=== PATIENT | female | born 1995 | race African-American/Black ===

== ENCOUNTER 2020-03-20 18:21 | Emergency (ER) | payer OTHER ==
[2020-03-20 19:22] LABS: Hemoglobin 13.8 g/dL (12.0-16.0); Mean Corpuscular Hemoglobin 30.7 pg (27.0-31.0); Mean Corpuscular Volume 92.9 fL (78.0-98.0); Mean Platelet Volume 7.2 fL (7.4-10.4); Platelet Count 296 thou/uL (130-400); RBC Distribution Width 11.9 % (11.5-14.5)
[2020-03-20 19:40] LABS: ALT (SGPT) 7 U/L (8-55); AST (SGOT) 16 U/L (5-34); Alkaline Phosphatase 84 U/L (40-110); Anion Gap 10 mmol/L (10-20); BUN (Urea Nitrogen) 10 mg/dL (7.0-18.7); Band 11 % (5-11); Bilirubin, Total 0.3 mg/dL (0.2-1.2); Calc. Creatinine Clearance 0 mL/min (70-130); Calcium 9.3 mg/dL (7.8-10.44); Carbon Dioxide 28 mmol/L (22-29); Chloride 106 mmol/L (98-107); Eosinophils 3 % (0-10); Estimated GFR-MDRD 84; Globulin 2.9 g/dL (2.4-3.5); Glucose 98 mg/dL (70-105); Lymphocytes 42 % (21-51); MDiff Complete? YES; Monocytes 10 % (0-10); Neutrophil 28 % (42-75); Potassium 3.8 mmol/L (3.5-5.1); Protein, Total 6.9 g/dL (6.0-8.3); Reactive Lymphocytes 6 % (0-10); Sodium 140 mmol/L (136-145)
--- NOTE | 2020-03-20 19:55 | ULT ---
GALLBLADDER ULTRASOUND: History: Jaundice FINDINGS: Gallbladder shows at least one large gallstone with posterior shadowing. The gallbladder is mildly co ntracted and the gallbladder wall is thickened. Common duct is normal caliber measured at 4 mm. Visualized pancreas is unremarkable. Visualized liver is unremarkable. The right kidney is unremarkable. The technologist describes a positive Melissa's sign. IMPRESSION: Cholelithiasis with mildly thickened gallbladder wall. Positive Melissa's sign. POS: AGW
[2020-03-20 20:01] LABS: HBCM Index 0.05 S/CO (0-0.79); Hep A IgM AB Non-Reactive (NonReactive); Hep A IgM S/CO 0.17 S/CO (0-0.79); Hep B Surf Ag Non-Reactive S/CO (NonReactive); Hep C IgG Ab Non-Reactive (NonReactive); Hep C Index 0.09 S/CO (0-0.79); Hepatitis B Core IgM Abs Non-Reactive (NonReactive)
== END 2020-03-20 20:04 | disposition home or self-care (01) ==
LOC: ERS 18:21
DX: K80.20 Calculus of gallbladder without cholecystitis without obstruction (principal); R23.8 Other skin changes
CPT/HCPCS: 36415; 76705; 80053; 80074; 85025

== ENCOUNTER 2020-04-19 08:50 | Outpatient (CLI) | payer OTHER ==
[2020-04-19 11:06] LABS: BHCG - Serum Negative (NEGATIVE); Pregs Control Background? CLEAR/WHITE (CLR/WHITE); Pregs Control Bar Appear? YES (CONTROL BAR)
[2020-04-19 12:08] LABS: Albumin 4.3 g/dL (3.5-5.0)
[2020-04-19 12:09] LABS: Chloride 106 mmol/L (98-107); Potassium 4.1 mmol/L (3.5-5.1); Sodium 140 mmol/L (136-145)
[2020-04-19 12:10] LABS: Calcium 9.7 mg/dL (7.8-10.44); Glucose 102 mg/dL (70-105)
[2020-04-19 12:11] LABS: Globulin 2.6 g/dL (2.4-3.5); Protein, Total 6.9 g/dL (6.0-8.3)
[2020-04-19 12:12] LABS: Anion Gap 15 mmol/L (10-20); Bilirubin, Total 0.6 mg/dL (0.2-1.2); Carbon Dioxide 23 mmol/L (22-29)
[2020-04-19 12:13] LABS: Alkaline Phosphatase 78 U/L (40-110)
[2020-04-19 12:14] LABS: Calc. Creatinine Clearance 0 mL/min (70-130); Estimated GFR-MDRD Greater than 90
[2020-04-19 12:15] LABS: AST (SGOT) 14 U/L (5-34); BUN (Urea Nitrogen) 9 mg/dL (7.0-18.7)
[2020-04-19 12:16] LABS: ALT (SGPT) Less than 7 U/L (8-55)
[2020-04-19 12:22] LABS: Band 1 % (5-11); Eosinophils 2 % (0-10); Hemoglobin 14.5 g/dL (12.0-16.0); Lymphocytes 56 % (21-51); MDiff Complete? YES; Mean Corpuscular HGB CONC 32.8 g/dL (32.0-36.0); Mean Corpuscular Hemoglobin 30.6 pg (27.0-31.0); Mean Corpuscular Volume 93.2 fL (78.0-98.0); Mean Platelet Volume 7.2 fL (7.4-10.4); Monocytes 7 % (0-10); Neutrophil 29 % (42-75); Platelet Count 282 thou/uL (130-400); Platelet Morphology Comment Appears Adequate; Polychromasia SLIGHT = 2-3 cells (100X) (0-2/hpf); RBC Distribution Width 12.2 % (11.5-14.5); Reactive Lymphocytes 5 % (0-10); Red Blood Cell (RBC) Count 4.74 mill/uL (4.20-5.40); White Blood Cell (WBC) Count 4.5 thou/uL (4.8-10.8)
[2020-04-20 11:34] LABS: SARS-CoV-2 MS2 Positive; SARS-CoV-2 N Gene Negative; SARS-CoV-2 S Gene Negative; SARS-CoV-2 by NAA Not Detected (NotDetected); SARS-CoV-2 orf1ab Negative
== END 2020-04-19 08:51 | disposition home or self-care (01) ==
LOC: LABBT 08:50
PROVIDERS: ATTEND Specialist
DX: Z01.812 Encounter for preprocedural laboratory examination (principal); Z11.59 Encounter for screening for other viral diseases; K80.10 Calculus of gallbladder with chronic cholecystitis without obstruction
CPT/HCPCS: 80053; 84703; 85025; 87635; U0003

== ENCOUNTER 2020-04-22 06:12 | Day surgery (SDC) | payer OTHER ==
[2020-04-15 11:34] VITALS: BMI 30.9
[2020-04-22] MEDS ORDERED: Fentanyl 100 MCG/2 ML VIAL ONE ×3 (06:24→08:41)
[2020-04-22] MEDS ORDERED: SUGAMMADEX SODIUM 200 MG/2 ML VIAL ONE (06:24)
[2020-04-22] MEDS ORDERED: Bupivacaine PF 0.5% 30 ML VIAL ONE (06:37)
[2020-04-22] MEDS ORDERED: EPINEPHrine 1 MG/ML AMP ONE (06:37)
[2020-04-22] MEDS ORDERED: Acetaminophen 500 MG TAB ONE (06:44)
[2020-04-22] MEDS ORDERED: Scopolamine 1.5 mg/72 hour Patch ONE (06:44)
[2020-04-22] MEDS ORDERED: Ketorolac Tromethamine 30 MG/ML VIAL ONE (06:45)
[2020-04-22] MEDS ORDERED: Ondansetron PF 4 MG/2 ML Vial ONE (08:55)
[2020-04-22] MEDS ORDERED: Lidocaine 1% PF 5 ML VIAL ONE (08:55)
[2020-04-22] MEDS ORDERED: PROPOFOL 200 MG/20 ML VIAL ONE (08:55)
[2020-04-22] MEDS ORDERED: Dexamethasone 20 MG/5 ML VIAL ONE (08:55)
[2020-04-22] MEDS ORDERED: Rocuronium Bromide 10 MG/ML (10ML VIAL) ONE (08:55)
[2020-04-22] MEDS ORDERED: HYDROcodone/Acetaminophen 5/325 mg Tablet ONE (09:26)
--- NOTE | 2020-04-22 09:45 | OP ---
DATE OF PROCEDURE: 04/22/2020 PREOPERATIVE DIAGNOSES: 1. Chronic cholecystitis. 2. Cholelithiasis. 3. Preexisting umbilical hernia. POSTOPERATIVE DIAGNOSES: 1. Chronic cholecystitis. 2. Cholelithiasis. 3. Preexisting umbilical hernia. PROCEDURE PERFORMED: Laparoscopic video cholecystectomy. ANESTHESIA: General, local with 0.5% Marcaine with epinephrine. DESCRIPTION OF PROCEDURE: The patient was taken to the operating room where under general anesthesia, abdomen was prepared with ChloraPrep and draped in routine fashion. Local anesthetic was infiltrated in the skin and subcutaneous tissue about each port site. Infraumbilical incision was made and a Veress needle was placed through a preexisting umbilical hernia, establishing pneumoperitoneum to 15 mmHg and this was placed with a 5 port and video laparoscope inserted. A right subxiphoid incision was made and 11 port placed. A right subcostal incision was made at midclavicular entrance line and the 5 port was placed. The fundus of the gallbladder reflected cephalad. Infundibulum grasped and reflected laterally. Cystic artery and duct dissected free. Critical view obtained. Cystic artery and duct doubly clipped proximally, divided. Gallbladder dissected free from liver bed, obtaining good hemostasis prior to division of final peritoneal attachments. Gallbladder and contents were removed, submitted to Pathology. Irrigant and pneumoperitoneum evacuated after ensuring good hemostasis. All skin incisions were approximated with interrupted subdermal 4-0 Monocryl and [place] glue applied. Job ID: [id number]
== END 2020-04-22 09:58 | disposition home or self-care (01) ==
LOC: SDC 06:12
PROVIDERS: ATTEND Specialist
PROC: 0FT44ZZ Resection of Gallbladder, Percutaneous Endoscopic Approach (ICD-10-PCS; principal; 2020-04-22)
DX: K80.10 Calculus of gallbladder with chronic cholecystitis without obstruction (principal); K42.9 Umbilical hernia without obstruction or gangrene
CPT/HCPCS: 88304; J0171; J0690; J1885; J3010; S0020

== ENCOUNTER 2021-06-20 08:55 | Emergency (ER) | payer OTHER ==
[2021-06-20 10:13] LABS: #Monocytes 0.5 thou/uL (0.11-0.59); #Neutrophils 3.3 thou/uL (1.40-6.50); %Basophils 0.8 % (0.0-1.0); %Eosinophils 0.4 % (0.0-10.0); %Lymphocytes 34.1 % (21.0-51.0); %Monocytes 7.7 % (0.0-10.0); Hemoglobin 13.4 g/dL (12.0-16.0); Mean Corpuscular HGB CONC 33.3 g/dL (32.0-36.0); Mean Corpuscular Hemoglobin 30.5 pg (27.0-31.0); Mean Corpuscular Volume 91.3 fL (78.0-98.0); Platelet Count 313 thou/uL (130-400); RBC Distribution Width 12.5 % (11.5-14.5); White Blood Cell (WBC) Count 5.9 thou/uL (4.8-10.8)
[2021-06-20 11:42] LABS: Bacteria/HPF None Seen HPF (None Seen); Bilirubin Negative (Negative); Blood, Urine 3+ (Negative); Clarity Clear (Clear); Glucose, Urine (Dipstick) Normal (Negative); Ketone, Urine Greater than 150 mg/dL (Negative); Leukocyte Negative Leu/uL (Negative); Nitrite Negative (Negative); Protein, Urine (Dipstick) 30 mg/dL (Neg-Trace); RBC/HPF Greater than 50 HPF (0-3); Specific Gravity, Urine 1.032 (1.002-1.036); Squamous Epithelial 0-3 HPF (0-3); Urobilinogen Normal mg/dL (Less than 2); WBC/HPF 0-3 HPF (0-3)
[2021-06-20 12:52] LABS: ALT (SGPT) 12 U/L (8-55); AST (SGOT) 19 U/L (5-34); Albumin 3.8 g/dL (3.5-5.0); Alkaline Phosphatase 45 U/L (40-110); Anion Gap 13 mmol/L (10-20); BUN (Urea Nitrogen) 7 mg/dL (7.0-18.7); Bilirubin, Total 0.4 mg/dL (0.2-1.2); Calc. Creatinine Clearance 0 mL/min (70-130); Calcium 9.6 mg/dL (7.8-10.44); Carbon Dioxide 22 mmol/L (22-29); Chloride 104 mmol/L (98-107); Globulin 2.7 g/dL (2.4-3.5); Glucose 77 mg/dL (70-105); Lipase 13 U/L (8-78); Potassium 4.3 mmol/L (3.5-5.1); Protein, Total 6.5 g/dL (6.0-8.3); Sodium 135 mmol/L (136-145)
== END 2021-06-20 14:18 | disposition home or self-care (01) ==
LOC: ERS 08:55
DX: O20.8 Other hemorrhage in early pregnancy (principal); O99.891 Other specified diseases and conditions complicating pregnancy; M54.6 Pain in thoracic spine; Z3A.09 9 weeks gestation of pregnancy
CPT/HCPCS: 36415; 76856; 80053; 81003; 81015; 83690; 84702; 85025; 86900; 86901; 93976